=== PATIENT | female | born 1970 | race African-American/Black ===

== ENCOUNTER 2018-10-08 17:24 | Emergency (ER) | payer OTHER, BC ==
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
[2018-10-08] MEDS ORDERED: IBUPROFEN 800 MG TABLET PO ONE (18:52)
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
[2018-10-08 20:28] VITALS: BP 126/76
== END 2018-10-08 20:27 | disposition home or self-care (01) ==
LOC: ER 17:24
DX: M79.10 Myalgia, unspecified site (principal); M46.96 Unspecified inflammatory spondylopathy, lumbar region; M51.36 Other intervertebral disc degeneration, lumbar region; M54.2 Cervicalgia; M54.9 Dorsalgia, unspecified; M25.511 Pain in right shoulder; M25.512 Pain in left shoulder; M79.671 Pain in right foot; M79.672 Pain in left foot; M79.604 Pain in right leg; M79.605 Pain in left leg; M54.5 Low back pain; V87.7XXA Person injured in collision between other specified motor vehicles (traffic), initial encounter; F17.210 Nicotine dependence, cigarettes, uncomplicated; I10 Essential (primary) hypertension
CPT/HCPCS: 72110; 99283; 99406